=== PATIENT | female | born 1995 | race African-American/Black ===

== ENCOUNTER 2017-06-28 21:47 | Emergency (ER) | payer SELFPAY ==
--- NOTE | 2017-06-28 23:36 | ULT ---
TRANSABDOMINAL AND TRANSVAGINAL VASCULAR DUPLEX ULTRASOUND OF THE PELVIS: History: 22-year-old female with right lower quadrant pain, nausea. Previous diagnosis of right ovarian cyst with worsening pain. FINDINGS: The uterus measures 7.2 x 3.3 x 4.6 cm with a 0.3 cm endometrium. The left ovary is not seen. The ri ght ovary is enlarged measuring 4.1 x 4.4 x 5.1 cm with a somewhat abnormal, somewhat multiloculated , multiseptated hypoechoic changes involving most of the right ovary. There is not a significant com ponent of normal appearing right ovary. No significant abnormal cul-de-sac fluid. There was some blo od flow documented on the periphery of this ovary, but no significant blood flow noted within the ce ntral aspect of the ovary. IMPRESSION: Abnormally enlarged right ovary with somewhat multiloculated complicated appearing cystic changes wi thin the right ovary. Possibilities include that of a multiseptated, complicated ovarian cyst or cys ts. Despite the fact that some blood flow was seen on the periphery of the ovary, I cannot totally e xclude the possibility of ovarian torsion. No definite color flow or doppler flow documentation of f low was seen within the more central portion of the ovary. It is conceivable that this appearance co uld also represent a somewhat small tubal ovarian abscess, although these changes appear to be more directly related to the ovary itself. In summary, I favor this being a complex, complicated ovarian cyst with less likely possibility of this representing a small tubal ovarian abscess. The possibilit y of this representing ovarian torsion Is felt to be less likely but cannot be excluded. Findings were discussed with Dr. Reymundo Rob at 11:15 p.m. POS: [facility]
[2017-06-28] MEDS ORDERED: Doxycycline 100 MG CAP PO SCH (23:45)
[2017-06-28] MEDS ORDERED: cefTRIAXone\\ROCEPHIN 1 GM VIAL ONE (23:50)
--- NOTE | 2017-06-29 04:59 | CON ---
DATE OF CONSULTATION: 06/28/2017 TIME OF SERVICE: 2330 hours. EMERGENCY PHYSICIAN: Reymundo Rob DO CONSULTING PHYSICIAN: Sarkis Bender MD REASON FOR CONSULTATION: Right adnexal mass with pain and ovarian cyst. HISTORY OF PRESENT ILLNESS: Ms. Reid is a 22-year-old 1, para 0, AB 1, LMP of approxima tely 3 weeks ago, who was seen in the [facility] and transferred to [facility]. She reports a pproximately 1 week of right lower quadrant pain that ranged between 4 and 7, previously worse with activity. She denies fever. She denies significant vaginal discharge. Of note, the patient was se en with essentially same complaints and diagnosed with Chlamydia in April. She reports that both h erself and her partner were treated. She is uncertain as to whether or not a [id number] has been performed. OB AND [employer] HEL[employer] HISTORY: As noted, denies STDs. PAST MEDICAL HISTORY: Significant for asthma, hypothyroidism. PAST SURGICAL HISTORY: Denies. ALLERGIES: Denies. MEDICATIONS: Synthroid. FAMILY HISTORY: Noncontributory. SOCIAL HISTORY: Reports tobacco use. Denies IV drug or alcohol abuse. PHYSICAL EXAMINATION: GENERAL: Reveals a black female, resting comfortably, pain is a 4/10. VITAL SIGNS: Pulse is 82, blood pressure was 132/82, and temperature was afebrile. GENITOURINARY: Limited exam, reveals an abdomen that is soft and nontender. She has mild guarding without distraction, no rebound, no CVA tenderness. Mild suprapubic tenderness as well. Pelvic exa m was deferred. She was reported as having some cervical discharge without CMP in [place]. LABORATORY STUDIES AND DIAGNOSTICS: The patient's white count is 15.3 with 70% neutrophils, 19% lym phs, hematocrit of 39%. Sodium is 138, creatinine is 0.78. Urinalysis reveals large leukocyte josep rase, 10-20 wbc's per high-power field, 2+ bacteria. VPIII in [place], which revealed clue cells, no trich. GC and chlamydia were sent. Ultrasound reveals somewhat complex 4 cm in greatest diamete r cyst in the right adnexa. This appears to be most consistent with a hemorrhagic corpus luteum. T here may be some mild hydrosalpinx attached to this. There is no free fluid noted. The uterus and left adnexa were within normal limits. There is no sonographic evidence of torsion. The patient's test is negative. IMPRESSION: Pelvic pain of uncertain etiology. I suspect either pelvic inflammatory disease or uri nary tract infection. Ovarian torsion seems incredibly unlikely in this case. PLAN: I have recommended the emergency room physician to administer Rocephin. Discharge the patien t to home on doxycycline and Flagyl for 7 days and have the patient followup at [facility] [place] in 7 days. ER precautions for worsening pain.
== END 2017-06-29 00:25 | disposition home or self-care (01) ==
LOC: ERS 21:47
DX: N73.9 Female pelvic inflammatory disease, unspecified (principal); I10 Essential (primary) hypertension; E03.9 Hypothyroidism, unspecified; F17.210 Nicotine dependence, cigarettes, uncomplicated
CPT/HCPCS: 76856; 96365; J0696

== ENCOUNTER 2021-07-24 16:32 | Emergency (ER) | payer BC, MEDICAID ==
[2021-07-24] MEDS ORDERED: Acetaminophen 500 MG TAB ONE (17:20)
[2021-07-24] MEDS ORDERED: Ketorolac Tromethamine 30 MG/ML VIAL ONE (17:20)
[2021-07-24] MEDS ORDERED: Dexamethasone 4 MG TAB ONE (17:20)
[2021-07-24 17:51] LABS: SARS-CoV-2 NAA Rapid Test Not Detected (NotDetected)
== END 2021-07-24 18:15 | disposition home or self-care (01) ==
LOC: ERS 16:32
DX: J45.901 Unspecified asthma with (acute) exacerbation (principal); J34.89 Other specified disorders of nose and nasal sinuses; Z20.822 Contact with and (suspected) exposure to COVID-19; Z79.899 Other long term (current) drug therapy; E03.9 Hypothyroidism, unspecified; E66.9 Obesity, unspecified; Z87.891 Personal history of nicotine dependence
CPT/HCPCS: 0240U; 71045; 96372; J1885; J7620; J8540

== ENCOUNTER 2021-09-08 17:21 | Emergency (ER) | payer BC ==
[2021-09-08] MEDS ORDERED: Acetaminophen 500 MG TAB ONE (17:58)
[2021-09-08 18:23] LABS: #Eosinphils 0.3 thou/uL (0.0-0.7); #Lymphocytes 0.8 thou/uL (1.20-3.40); #Monocytes 0.8 thou/uL (0.11-0.59); #Neutrophils 8.5 thou/uL (1.40-6.50); %Basophils 0.2 % (0.0-1.0); %Eosinophils 2.6 % (0.0-10.0); %Lymphocytes 7.2 % (21.0-51.0); %Monocytes 7.7 % (0.0-10.0); %Neutrophils 82.3 % (42.0-75.0); Hemoglobin 12.3 g/dL (12.0-16.0); Mean Corpuscular HGB CONC 31.2 g/dL (32.0-36.0); Mean Corpuscular Hemoglobin 29.1 pg (27.0-31.0); Mean Corpuscular Volume 93.3 fL (78.0-98.0); Mean Platelet Volume 7.5 fL (7.4-10.4); Platelet Count 234 thou/uL (130-400); RBC Distribution Width 15.2 % (11.5-14.5); Red Blood Cell (RBC) Count 4.22 mill/uL (4.20-5.40); White Blood Cell (WBC) Count 10.4 thou/uL (4.8-10.8)
[2021-09-08 18:35] LABS: BHCG - Serum Negative (NEGATIVE); Pregs Control Background? CLEAR/WHITE (CLR/WHITE); Pregs Control Bar Appear? YES (CONTROL BAR)
[2021-09-08 18:54] LABS: ALT (SGPT) 18 U/L (8-55); AST (SGOT) 14 U/L (5-34); Albumin 3.6 g/dL (3.5-5.0); Alkaline Phosphatase 110 U/L (40-110); Anion Gap 12 mmol/L (10-20); BUN (Urea Nitrogen) 8 mg/dL (7.0-18.7); Bilirubin, Total 0.3 mg/dL (0.2-1.2); Calc. Creatinine Clearance 0 mL/min (70-130); Calcium 9.1 mg/dL (7.8-10.44); Carbon Dioxide 26 mmol/L (22-29); Chloride 104 mmol/L (98-107); Globulin 3.4 g/dL (2.4-3.5); Glucose 70 mg/dL (70-105); Potassium 3.7 mmol/L (3.5-5.1); Sodium 138 mmol/L (136-145)
[2021-09-08 19:47] LABS: SARS-CoV-2 NAA Rapid Test DETECTED (NotDetected)
== END 2021-09-08 20:45 | disposition home or self-care (01) ==
LOC: ERS 17:21
DX: U07.1 COVID-19 (principal); E03.9 Hypothyroidism, unspecified; E66.9 Obesity, unspecified; J45.909 Unspecified asthma, uncomplicated; Z87.891 Personal history of nicotine dependence; Z79.899 Other long term (current) drug therapy
CPT/HCPCS: 0240U; 36415; 71045; 80053; 83605; 84484; 84703; 85025; 87040; 87804; 93005

== ENCOUNTER 2021-10-23 08:33 | Emergency (ER) | payer BC, MEDICAID | END 2021-10-23 10:48 | disposition home or self-care (01) | LOC: ERS 08:33 | DX: M25.562 Pain in left knee (principal); E03.9 Hypothyroidism, unspecified; D57.3 Sickle-cell trait; Z87.891 Personal history of nicotine dependence | CPT/HCPCS: 96372 ==

== ENCOUNTER 2021-11-23 07:39 | Emergency (ER) | payer BC | END 2021-11-23 09:06 | disposition home or self-care (01) | LOC: ERS 07:39 | DX: B34.9 Viral infection, unspecified (principal); E66.9 Obesity, unspecified; J45.909 Unspecified asthma, uncomplicated; Z87.891 Personal history of nicotine dependence; Z79.899 Other long term (current) drug therapy; E03.9 Hypothyroidism, unspecified | CPT/HCPCS: 99284 ==

== ENCOUNTER 2022-03-06 11:28 | Emergency (ER) | payer BC ==
[2022-03-06] MEDS ORDERED: Acetaminophen 500 MG TAB ONE (11:51)
[2022-03-06 13:29] LABS: Reticulocyte Count 2.7 % (0.5-1.5)
[2022-03-06 13:30] LABS: #Eosinphils 0.4 thou/uL (0.0-0.7); #Lymphocytes 1.4 thou/uL (1.20-3.40); #Monocytes 0.7 thou/uL (0.11-0.59); #Neutrophils 8.1 thou/uL (1.40-6.50); %Basophils 0.2 % (0.0-1.0); %Eosinophils 3.4 % (0.0-10.0); %Lymphocytes 13.6 % (21.0-51.0); %Monocytes 6.2 % (0.0-10.0); %Neutrophils 76.6 % (42.0-75.0); Mean Corpuscular HGB CONC 31.7 g/dL (32.0-36.0); Mean Corpuscular Hemoglobin 30.3 pg (27.0-31.0); Mean Corpuscular Volume 95.6 fL (78.0-98.0); Mean Platelet Volume 7.2 fL (7.4-10.4); Platelet Count 281 thou/uL (130-400); RBC Distribution Width 15.4 % (11.5-14.5); Red Blood Cell (RBC) Count 3.95 mill/uL (4.20-5.40); White Blood Cell (WBC) Count 10.6 thou/uL (4.8-10.8)
[2022-03-06 13:49] LABS: ALT (SGPT) 17 U/L (8-55); AST (SGOT) 15 U/L (5-34); Albumin 3.7 g/dL (3.5-5.0); Alkaline Phosphatase 119 U/L (40-110); Anion Gap 11 mmol/L (10-20); BUN (Urea Nitrogen) 10 mg/dL (7.0-18.7); Bilirubin, Total 0.5 mg/dL (0.2-1.2); Calc. Creatinine Clearance 0 mL/min (70-130); Calcium 8.7 mg/dL (7.8-10.44); Carbon Dioxide 26 mmol/L (22-29); Chloride 103 mmol/L (98-107); Globulin 3.9 g/dL (2.4-3.5); Glucose 70 mg/dL (70-105); Protein, Total 7.6 g/dL (6.0-8.3); Sodium 136 mmol/L (136-145)
== END 2022-03-06 14:18 | disposition home or self-care (01) ==
LOC: ERS 11:28
DX: U07.1 COVID-19 (principal); J39.9 Disease of upper respiratory tract, unspecified; E03.9 Hypothyroidism, unspecified; Z87.891 Personal history of nicotine dependence; Z79.899 Other long term (current) drug therapy
CPT/HCPCS: 36415; 71045; 80053; 85025; 85046; U0003; U0005

== ENCOUNTER 2022-03-08 10:09 | Emergency (ER) | payer BC ==
[2022-03-08] MEDS ORDERED: Albuterol 200 PUFF (6.7GM INHALER) ONE (10:31)
[2022-03-08 11:10] LABS: Bacteria/HPF 1+ HPF (None Seen); Bilirubin Negative (Negative); Blood, Urine 2+ (Negative); Clarity Turbid (Clear); Glucose, Urine (Dipstick) Normal (Negative); Ketone, Urine Negative (Negative); Leukocyte 75 Leu/uL (Negative); Nitrite Negative (Negative); Pregnancy Test - Urine (BHCG) Negative (Negative); Pregu Control Background? CLEAR/WHITE (CLR/WHITE); Pregu Control Bar Appear? YES (CONTROL BAR); Protein, Urine (Dipstick) Negative (Neg-Trace); Specific Gravity 1.017 (1.002-1.036); Specific Gravity, Urine 1.017 (1.002-1.036); Squamous Epithelial 21-50 HPF (0-3); Urobilinogen Normal mg/dL (Less than 2); pH, Urine 5.5 (5.0-9.0)
== END 2022-03-08 12:18 | disposition home or self-care (01) ==
LOC: ERS 10:09
DX: U07.1 COVID-19 (principal); J45.901 Unspecified asthma with (acute) exacerbation; M79.10 Myalgia, unspecified site; E03.9 Hypothyroidism, unspecified; N83.209 Unspecified ovarian cyst, unspecified side; E66.9 Obesity, unspecified; Z68.45 Body mass index [BMI] 70 or greater, adult; Z87.891 Personal history of nicotine dependence
CPT/HCPCS: 81003; 81015; 81025; 99284

== ENCOUNTER 2022-08-11 13:08 | Emergency (ER) | payer BC | END 2022-08-11 14:20 | disposition home or self-care (01) | LOC: ERS 13:08 | DX: B34.9 Viral infection, unspecified (principal); E03.9 Hypothyroidism, unspecified; Z87.891 Personal history of nicotine dependence | CPT/HCPCS: 87081; 87430; 87804; 99283 ==

== ENCOUNTER 2023-04-26 18:50 | Emergency (ER) | payer BC ==
[2023-04-26] MEDS ORDERED: Ondansetron PF 4 MG/2 ML Vial ONE (19:45)
[2023-04-26] MEDS ORDERED: Ondansetron ODT 4 MG TAB ONE (19:46)
[2023-04-26 20:50] LABS: SARS-CoV-2 NAA Rapid Test Not Detected (NotDetected)
== END 2023-04-26 19:55 | disposition home or self-care (01) ==
LOC: ERS 18:50
DX: J06.9 Acute upper respiratory infection, unspecified (principal); F17.210 Nicotine dependence, cigarettes, uncomplicated; Z20.822 Contact with and (suspected) exposure to COVID-19
CPT/HCPCS: 99283; J2405; Q0162

== ENCOUNTER 2024-04-25 14:54 | Outpatient (CLI) | payer BC | END 2024-04-25 14:55 | disposition home or self-care (01) | LOC: DTY/OP 14:54 | PROVIDERS: ATTEND Surgery | DX: E66.01 Morbid (severe) obesity due to excess calories (principal) | CPT/HCPCS: 97802 ==

== ENCOUNTER 2024-07-21 09:13 | Outpatient (CLI) | payer BC ==
[2024-07-21 10:29] LABS: #Basophils 0.03 10x3/uL (0.0-0.2); %Basophils 0.4 % (0.0-1.0); %Eosinophils 3.1 % (0.0-10.0); %Lymphocytes 30.1 % (21.0-51.0); %Monocytes 9.2 % (0.0-10.0); %Neutrophils 56.9 % (42.0-75.0); Hematocrit 37.7 % (36.0-47.0); Hemoglobin 12.1 g/dL (12.0-16.0); Mean Corpuscular HGB CONC 32.1 g/dL (32.0-36.0); Mean Corpuscular Hemoglobin 28.2 pg (27.0-31.0); Mean Corpuscular Volume 87.9 fL (78.0-98.0); Mean Platelet Volume 10.1 fL (7.4-10.4); Platelet Count 349 10x3/uL (130-400); RBC Distribution Width 17.5 % (11.5-14.5); Red Blood Cell (RBC) Count 4.29 mill/uL (4.20-5.40)
[2024-07-21 10:46] LABS: ALT (SGPT) 26 U/L (8-55); AST (SGOT) 18 U/L (5-34); Albumin 3.5 g/dL (3.5-5.0); Alkaline Phosphatase 98 U/L (40-110); Anion Gap 12 mmol/L (10-20); BUN (Urea Nitrogen) 12 mg/dL (7.0-18.7); Bilirubin, Total 0.4 mg/dL (0.2-1.2); Calc. Creatinine Clearance 0 mL/min (70-130); Carbon Dioxide 22 mmol/L (22-29); Chloride 108 mmol/L (98-107); Estimated GFR 120; Glucose 76 mg/dL (70-105); Potassium 4.2 mmol/L (3.5-5.1); Protein, Total 6.5 g/dL (6.0-8.3); Sodium 138 mmol/L (136-145)
== END 2024-07-21 09:14 | disposition home or self-care (01) ==
LOC: LABBT 09:13
PROVIDERS: ATTEND Surgery
DX: Z01.812 Encounter for preprocedural laboratory examination (principal); E66.01 Morbid (severe) obesity due to excess calories
CPT/HCPCS: 80053; 83036; 85025

== ENCOUNTER 2024-08-15 08:50 | Day surgery (SDC) | payer BC ==
[~2024-08-15 08:50] MED LIST: Ondansetron PF 4 MG/2 ML Vial IVP PRN; diphenhydrAMINE 25 MG CAP PO PRN; diphenhydrAMINE 50 MG/ML VIAL IVP PRN
[2024-08-15] MEDS: Sodium Chloride 0.9% 1,000 ML IV SCH (09:15)
[2024-08-15] MEDS: Multivitamins, Adult 10 ML, Thiamine HCl 100 MG in Sodium Chloride 0.9% 1,000 ML IV SCH (09:49)
[2024-08-15 10:12] VITALS: BP 131/82; TEMP 98.3
== END 2024-08-15 13:00 | disposition home or self-care (01) ==
LOC: ONC/OP 08:50
PROVIDERS: ATTEND Surgery
DX: E86.0 Dehydration (principal); Z88.0 Allergy status to penicillin
CPT/HCPCS: 96360; 96367; J3411; J7030

== ENCOUNTER 2024-09-06 08:43 | Day surgery (SDC) | payer BC ==
[2024-09-06] MEDS ORDERED: Ondansetron PF 4 MG/2 ML Vial IVP PRN (09:13)
[2024-09-06] MEDS: Sodium Chloride 0.9% 1,000 ML IV SCH (11:12)
[2024-09-06 12:28] VITALS: BP 130/59; TEMP 98.2
[2024-09-06] MEDS: Multivitamins, Adult 10 ML, Thiamine HCl 100 MG in Sodium Chloride 0.9% 1,000 ML IV SCH (12:38)
== END 2024-09-06 16:07 | disposition home or self-care (01) ==
LOC: ONC/OP 08:43
PROVIDERS: ATTEND Surgery
DX: E86.0 Dehydration (principal); Z88.0 Allergy status to penicillin
CPT/HCPCS: 96361; 96365; 96366; J3411; J7030